=== PATIENT | male | born 1980 | race African-American/Black ===

== ENCOUNTER 2017-07-04 10:57 | Emergency (ER) | payer BC, OTHER ==
[~2017-07-04] VITALS: Ht 185.4 cm; Wt 130.0 kg
[~2017-07-04 10:57] MED LIST: (None)3.5 GM OP; ACCOLATE10 MG; BACTRIM DS1 TAB PO; GLIPIZIDE10 MG PO; KEFLEX500 MG OR; METFORMIN HCL1000 MG PO; METFORMIN500 MG PO; METFORMIN850 MG PO; METOPROL TAR100 MG PO; NO HOME MEDS; ROBITUSSIN AC OR; ULTRAM50 M1 PO; ULTRAM50 MG OR; [UNRECOGNIZED DRUG - REMARK]
[2017-07-04] MEDS ORDERED: NAPROSYN500 MG PO (12:35)
[2017-07-04] MEDS ORDERED: BACTRIM DS1 TAB PO (12:35)
[2017-07-04 12:37] VITALS: BP 164/121
== END 2017-07-04 12:45 | disposition home or self-care (01) | DRG 603 ==
LOC: ED 10:57
PROC: 0H9BXZZ Drainage of Right Upper Arm Skin, External Approach (ICD-10-PCS; principal; 2017-07-04)
DX: L02.411 Cutaneous abscess of right axilla (principal); I10 Essential (primary) hypertension; B96.4 Proteus (mirabilis) (morganii) as the cause of diseases classified elsewhere

== ENCOUNTER 2017-10-27 05:28 | Emergency (ER) | payer BC ==
[~2017-10-27] VITALS: Ht 185.4 cm; Wt 128.6 kg
[~2017-10-27 05:28] MED LIST changes: +NAPROSYN500 MG PO
[2017-10-27] MEDS ORDERED: BACTRIM DS1 TAB PO (06:08)
[2017-10-27] MEDS ORDERED: KEFLEX500 M1 PO (06:08)
[2017-10-27] MEDS ORDERED: PERCOCET 5/325M1 TAB PO (06:08)
[2017-10-27 06:23] VITALS: BP 135/102
== END 2017-10-27 06:40 | disposition home or self-care (01) | DRG 603 ==
LOC: ED 05:28
PROC: 0X940ZZ Drainage of Right Axilla, Open Approach (ICD-10-PCS; principal; 2017-10-27)
DX: L02.411 Cutaneous abscess of right axilla (principal)

== ENCOUNTER 2018-04-24 08:26 | Emergency (ER) | payer BC ==
[~2018-04-24] VITALS: Ht 185.4 cm; Wt 100.0 kg
[~2018-04-24 08:26] MED LIST changes: +KEFLEX500 M1 PO; +PERCOCET 5/325M1 TAB PO
[2018-04-24] MEDS ORDERED: LORTAB 1010 MG PO (10:20)
[2018-04-24] MEDS ORDERED: BACTRIM DS1 TAB PO (10:20)
[2018-04-24] MEDS ORDERED: CEPHALEXIN500 M1 PO (10:20)
[2018-04-24 10:25] VITALS: BP 146/78
== END 2018-04-24 10:25 | disposition home or self-care (01) | DRG 603 ==
LOC: ED 08:26
PROC: 0X940ZZ Drainage of Right Axilla, Open Approach (ICD-10-PCS; principal; 2018-04-24)
DX: L02.411 Cutaneous abscess of right axilla (principal); B96.4 Proteus (mirabilis) (morganii) as the cause of diseases classified elsewhere

== ENCOUNTER 2018-10-27 07:23 | Emergency (ER) | payer BC ==
[~2018-10-27] VITALS: Ht 185.4 cm; Wt 128.2 kg
[~2018-10-27 07:23] MED LIST changes: +CEPHALEXIN500 M1 PO; +LORTAB 1010 MG PO
[2018-10-27] MEDS ORDERED: CLEOCIN300 MG PO (07:54)
[2018-10-27] MEDS ORDERED: TORADOL PO (07:54)
[2018-10-27 08:04] VITALS: BP 143/86
== END 2018-10-27 08:18 | disposition home or self-care (01) | DRG 603 ==
LOC: ED 07:23
DX: L03.111 Cellulitis of right axilla (principal)

== ENCOUNTER 2022-10-01 11:43 | Emergency (ER) | payer BC ==
[~2022-10-01] VITALS: Ht 185.4 cm; Wt 129.5 kg
[~2022-10-01 11:43] MED LIST changes: +CLEOCIN300 MG PO; +TORADOL PO
[2022-10-01 12:20] VITALS: BP 146/96
[2022-10-01 12:30] VITALS: BP 117/84
[2022-10-01 12:45] VITALS: BP 122/94
[2022-10-01] MEDS ORDERED: VIBRAMYCIN100 M2 PO (12:51)
[2022-10-01 13:01] VITALS: BP 144/107
[2022-10-01 13:11] VITALS: BP 144/107
== END 2022-10-01 13:18 | disposition home or self-care (01) | DRG 603 ==
LOC: ED 11:43
DX: L02.411 Cutaneous abscess of right axilla (principal)

== ENCOUNTER 2022-10-05 08:12 | Emergency (ER) | payer BC ==
[~2022-10-05] VITALS: Ht 185.4 cm; Wt 129.5 kg
[~2022-10-05 08:12] MED LIST changes: +VIBRAMYCIN100 M2 PO
[2022-10-05 08:18] VITALS: BP 129/99
[2022-10-05] MEDS ORDERED: BACTRIM DS1 TAB PO (09:00)
[2022-10-05 09:12] VITALS: BP 129/99
== END 2022-10-05 09:22 | disposition home or self-care (01) | DRG 603 ==
LOC: ED 08:12
DX: L02.411 Cutaneous abscess of right axilla (principal)

== ENCOUNTER 2023-03-15 06:39 | Emergency (ER) | payer BC ==
[~2023-03-15] VITALS: Ht 185.4 cm; Wt 140.0 kg
[2023-03-15 06:52] VITALS: BP 136/94
[2023-03-15 07:00] VITALS: BP 134/88
[2023-03-15 07:15] VITALS: BP 142/100
[2023-03-15] MEDS ORDERED: BACTRIM DS1 TAB PO (07:23)
[2023-03-15 07:25] VITALS: BP 117/85
== END 2023-03-15 07:32 | disposition home or self-care (01) | DRG 603 ==
LOC: ED 06:39
PROC: 0H9BXZZ Drainage of Right Upper Arm Skin, External Approach (ICD-10-PCS; principal; 2023-03-15)
DX: L02.411 Cutaneous abscess of right axilla (principal); E11.9 Type 2 diabetes mellitus without complications